=== PATIENT | female | born 1955 | race Caucasian/White ===

== ENCOUNTER → 2021-05-28 | Outpatient (CLI) | payer OTHER | LOC: HEART 5 14:00 | DX: J44.9 Chronic obstructive pulmonary disease, unspecified (principal) | CPT/HCPCS: 94060; 94729 ==

== ENCOUNTER 2022-01-19 14:23 | Emergency (ER) | payer OTHER ==
[2022-01-19 15:23] LABS: HEMOGLOBIN 14.4 gm/dl (12.3-15.3); RED BLOOD COUNT 4.15 M/UL (4.00-5.10); WHITE BLOOD COUNT 6.3 K/UL (4.5-11.0)
== END 2022-01-19 18:35 | disposition home or self-care (01) ==
LOC: ER1 14:23
PROVIDERS: Emergency Medicine
DX: R42 Dizziness and giddiness (principal); E03.9 Hypothyroidism, unspecified; E78.5 Hyperlipidemia, unspecified; Z90.710 Acquired absence of both cervix and uterus; F17.200 Nicotine dependence, unspecified, uncomplicated; Z20.822 Contact with and (suspected) exposure to COVID-19
CPT/HCPCS: 0241U; 71045; 80053; 81001; 82550; 82553; 82962; 83735; 84439; 84443; 84484; 85025; 93005; 99285